=== PATIENT | female | born 1995 | race Hispanic/Latino ===

== ENCOUNTER 2017-12-01 20:01 | Inpatient (IN) | payer MEDICAID ==
[2017-12-01] MEDS ORDERED: Sodium Chloride 0.9% 1,000 ML IV STA ×2 (20:41→23:12)
[2017-12-01] MEDS ORDERED: Acetaminophen 160 mg/5 ml UD PO STA (20:42)
[2017-12-01] MEDS ORDERED: Acetaminophen 325 MG/10.15 ML ONE (21:02)
[2017-12-01] MEDS ORDERED: cefTRIAXone (Rocephin) 1 gm Inj ONE (21:02)
--- NOTE | 2017-12-01 21:03 | ED PDOC ---
HPI: General Adult Time Seen by Provider: 12/01/17 20:12 Chief Complaint (Nursing): Fever Chief Complaint (Provider): Flu-like symptoms and Right sided flank pain History Per: Patient History/Exam Limitations: no limitations Onset/Duration Of Symptoms: Days (2 days) Current Symptoms Are (Timing): Still Present Additional Complaint(s): 22 yo female presents to the ED complaining of fever, chills, body aches, and right sided flank pain, onset of 2 days ago. Patient also reports of poor appetite, but denies any urinary problems, nausea, vomiting, or diarrhea. Of note, she has not taken an medication for the symptoms. Past Medical History Reviewed: Historical Data, Nursing Documentation, Vital Signs Vital Signs: Last Vital Signs Temp 101.2 F H 12/01/17 20:06 Pulse 124 H 12/01/17 20:06 Resp 18 12/01/17 20:06 BP 127/82 12/01/17 20:06 Pulse Ox 96 12/01/17 21:10 - Medical History PMH: No Chronic Diseases - Surgical History Surgical History: No Surg Hx - Family History Family History: States: Unknown Family Hx - Social History Current smoker - smoking cessation education provided: No Ex-Smoker (has not smoked in the last 12 months): No Alcohol: None Drugs: Denies - Home Medications Home Medications: Ambulatory Orders Medication Instructions Recorded Ondansetron [Zofran Odt] 4 mg PO BID PRN #24 odt 12/06/14 - Allergies Allergies/Adverse Reactions: Allergies Allergy/AdvReac Type Severity Reaction Status Date / Time No Known Allergies Allergy Verified 12/05/14 22:11 Review of Systems ROS Statement: Except As Marked, All Systems Reviewed And Found Negative Constitutional: Positive for: Fever, Chills, Weakness, Other (body aches) Genitourinary Female: Negative for: Dysuria, Frequency, Incontinence Musculoskeletal: Positive for: Back Pain (right sided flank pain) Neurological: Positive for: Headache Physical Exam - Reviewed Nursing Documentation Reviewed: Yes Vital Signs Reviewed: Yes - Physical Exam Appears: Positive for: Non-toxic, No Acute Distress, Uncomfortable Head Exam: Positive for: ATRAUMATIC, NORMAL INSPECTION, NORMOCEPHALIC Skin: Positive for: Normal Color, Warm Eye Exam: Positive for: Normal appearance, EOMI, PERRL ENT: Positive for: Normal ENT Inspection Neck: Positive for: Normal, Painless ROM, Supple Cardiovascular/Chest: Positive for: Regular Rate, Rhythm, Tachycardia. Negative for: Murmur Respiratory: Positive for: Normal Breath Sounds. Negative for: Respiratory Distress Gastrointestinal/Abdominal: Positive for: Normal Exam, Soft. Negative for: Tenderness Back: Positive for: R CVA Tenderness Extremity: Positive for: Normal ROM, Pedal Edema. Negative for: Deformity Neurologic/Psych: Positive for: Alert, Oriented - Laboratory Results Result Diagrams: 12/01/17 21:32 12/01/17 21:00 - ECG O2 Sat by Pulse Oximetry: 96 (RA) Pulse Ox Interpretation: Normal Medical Decision Making Medical Decision Making: Time: --20:45 Impression: --22 y/o female Flu-like symptoms and Right Sided Flank pain Plan: --labs --lactic acid, plasma --ED urine Dip --ED urine --Tylenol 960mg PO --Toradol 15mg IVP --IV fluids --Ceftriaxone --Blood Culture --Culture urine --Heplock Insetion --Influenza A B --urinalysis Reassess --21:00 Urine was indicative of a urinary infection. IV Rocephin ordered --22:50 labs reviewed and significant for leukocytosis. 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 Patient discussed with Dr. Mendez, medicine transportation logistics internship, and will be admitted. Scribe Attestation: Documented by Alcides Alejandre acting as a scribe for Jarrett Herndon MD. Provider Attestation: All medical record entries made by the Scribe were at my direction and personally dictated by me. I have reviewed the chart and agree that the record accurately reflects my personal performance of the history, physical exam, medical decision making, and the department course for this patient. I have also personally directed, reviewed, and agree with the discharge instructions and disposition. Disposition - Clinical Impression Clinical Impression: Flu, Flank pain - Patient ED Disposition Is Patient to be Admitted: Yes Discussed With : He Mendez Doctor Will See Patient In The: Hospital - Disposition Disposition Time: 22:50 Condition: FAIR
[2017-12-01] MEDS ORDERED: cefTRIAXone 2 GM in Sodium Chloride 0.9% 100 ML IVPB STA (21:09)
[2017-12-01 21:23] LABS: ALB/GLOB RATIO 1.2 (1.0-2.1); ALBUMIN 4.9 g/dL (3.5-5.0); ALT/SGPT 24 U/L (9-52); AST/SGOT 25 U/L (14-36); BLOOD UREA NITROGEN 11 mg/dl (7-17); CALCIUM 9.6 mg/dL (8.4-10.2); GFR AFRICAN-AMERICAN > 60; GFR NON-AFRICAN AMERICAN > 60
[2017-12-01 21:30] LABS: SQUAMOUS EPITHIAL 2 /hpf (0-5); URINE BACTERIA OCC (<OCC); URINE BILIRUBIN NEGATIVE (NEGATIVE); URINE BLOOD SMALL (NEGATIVE); URINE CLARITY CLOUDY (Clear); URINE COLOR YELLOW (YELLOW); URINE GLUCOSE (UA) NEG (Normal); URINE LEUKOCYTE ESTERASE LARGE Leu/uL (Negative); URINE NITRATE POSITIVE (NEGATIVE); URINE PROTEIN 30 mg/dL (NEGATIVE)
[2017-12-01] MEDS ORDERED: cefTRIAXone 2 GM in Sodium Chloride 0.9% 100 ML IVPB ONE (21:30)
[2017-12-01 21:38] LABS: BASO % 0.4 % (0.0-2.0); HEMOGLOBIN 11.9 g/dL (12.0-16.0); LYMPH # 1.2 K/uL (1.0-4.3); LYMPH % 8.6 % (20.0-40.0); MEAN CELL VOLUME 87.9 fl (81.0-99.0); MEAN CORPUSCULAR HEMOGLOBIN 28.3 pg (27.0-31.0); MEAN CORPUSCULAR HGB CONC 32.2 g/dL (33.0-37.0); MEAN PLATELET VOLUME 9.2 fl (7.2-11.7); MONO # 1.5 K/uL (0.0-0.8); MONO % 10.3 % (0.0-10.0); NEUT # 11.4 K/uL (1.8-7.0); NEUT % 80.7 % (50.0-75.0); PLATELET COUNT 136 K/uL (130-400); RBC 4.18 Mil/uL (3.80-5.20); RED CELL DISTRIBUTION WIDTH 13.7 % (11.5-14.5); WHITE BLOOD COUNT 14.2 K/uL (4.8-10.8)
[2017-12-02 03:14] LABS: LYMPHOCYTE 10 % (20-50); MONOCYTE 5 % (0-10); NEUTROPHIL 85 % (42-75); TOTAL CELLS COUNTED 100
[2017-12-02 03:16] LABS: PLATELET ESTIMATE NORMAL (NORMAL)
[2017-12-02] MEDS: Acetaminophen 650mg/20.3ml solution UD PO PRN ×3 (04:27→20:38)
[2017-12-02 06:57] LABS: HEMOGLOBIN 11.5 g/dL (12.0-16.0); MEAN CELL VOLUME 88.4 fl (81.0-99.0); MEAN CORPUSCULAR HEMOGLOBIN 28.4 pg (27.0-31.0); MEAN CORPUSCULAR HGB CONC 32.1 g/dL (33.0-37.0); RBC 4.05 Mil/uL (3.80-5.20); RED CELL DISTRIBUTION WIDTH 13.8 % (11.5-14.5)
[2017-12-02] MEDS: levoFLOXacin 500 mg in D5W 500 MG/100 ML BAG IVPB SCH (08:16)
[2017-12-02] MEDS ORDERED: cefTRIAXone 2 GM in Sodium Chloride 0.9% 100 ML IVPB SCH (09:00)
--- NOTE | 2017-12-02 14:52 | US ---
HISTORY: Pelvic pain COMPARISON: comparison made with pelvic ultrasound dated 12/06/2014. TECHNIQUE: Transabdominal sonographic evaluation of the pelvis performed FINDINGS: UTERUS: The uterus is anteverted measuring approximately 7.6 x 3.3 x 5.3 cm. Normal in size. The uterus exhibits heterogeneous appearance though no discrete fibroid seen. . . There is a somewhat linear echogenic focus within the endometrial canal that probably represents in situ IUD ENDOMETRIUM: Measures 3.8 mm in diameter. Unremarkable. CERVIX: No cervical abnormality identified. RIGHT OVARY: Not visualized LEFT OVARY: Not visualized FREE FLUID: No significant free fluid noted. OTHER FINDINGS: None. IMPRESSION: Apparent in situ IUD as detailed above. Plain film radiograph of the abdomen could be performed to confirm. Right and left ovaries not visualized on this exam.
--- NOTE | 2017-12-02 15:54 | RAD ---
HISTORY: COMPARISON: No prior. TECHNIQUE: Chest PA and lateral FINDINGS: LINES AND TUBES: None. LUNG AND PLEURA: The lungs are well inflated. The right lung is clear. There is ill-defined opacity in the left retrocardiac region. HEART AND MEDIASTINUM: The heart is not enlarged. The hilar and mediastinal contours are within normal limits. SKELETAL STRUCTURES: The bony structures are within normal limits for the patient's age. VISUALIZED UPPER ABDOMEN: Normal. OTHER FINDINGS: None. IMPRESSION: Left retrocardiac airspace disease may represent subsegmental atelectasis however superimposed pneumonia cannot be excluded. Follow-up after medical management is recommended to ensure complete resolution.
--- NOTE | 2017-12-02 21:15 | HP ---
HISTORY OF PRESENT ILLNESS: Ms. Corey is a 22-year-old female who was admitted via the emergency room because of fever, chills, abdominal pain in right flank for 3 to 4 days prior to presentation. She denies nausea or vomiting or diarrhea. She was seen in the emergency room because of high temperature and the above symptoms, was advised workup and therapy. She was diagnosed to have acute pyelonephritis. PAST MEDICAL HISTORY: Unremarkable. SOCIAL HISTORY: She does not drink or smoke. FAMILY HISTORY: Unremarkable. PHYSICAL EXAMINATION: GENERAL: The patient is alert, oriented, appears to be in mild distress because of fever. VITAL SIGNS: Blood pressure 127/82, pulse of 124, respiratory rate 18, temperature 101.2 degrees Fahrenheit, O2 sat 96% on room air. SKIN: Shows fair turgor. HEENT: Pupils equal, reactive to light and accommodation. Mouth shows fair hygiene. LUNGS: Clear. BREASTS: Normal. HEART: Regular. No murmurs or gallops. ABDOMEN: There is right flank and right upper quadrant tenderness. No suprapubic tenderness. GENITALIA: Deferred. RECTAL: Deferred. CENTRAL NERVOUS SYSTEM: Grossly intact. LABORATORY DATA: WBC 14.2, hemoglobin 11.9, platelet count 136,000. Sodium 137, potassium 4.0, BUN 11, creatinine 0.6, serum glucose 113. IMPRESSION: Abdominal pain with right flank tenderness. One has to rule out acute pyelonephritis, especially in view of the fact that the patient has positive nitrites in the urine, large amount of leukocyte esterase, RBCs with occasional bacteria. Moreno culture is already done. IV antibiotics started, analgesics for pain, Tylenol p.r.n. for fever. Ultrasound of abdomen and pelvis ordered. We will continue therapy as ordered. He Mendez MD
[2017-12-03] MEDS: Acetaminophen 650mg/20.3ml solution UD PO PRN ×2 (06:11→17:21)
[2017-12-03 06:56] LABS: BASO % 0.3 % (0.0-2.0); EOS # 0.1 K/uL (0.0-0.7); EOS % 0.6 % (0.0-4.0); HEMOGLOBIN 11.8 g/dL (12.0-16.0); LYMPH % 10.1 % (20.0-40.0); MEAN CELL VOLUME 86.6 fl (81.0-99.0); MEAN CORPUSCULAR HEMOGLOBIN 29.2 pg (27.0-31.0); MEAN CORPUSCULAR HGB CONC 33.7 g/dL (33.0-37.0); MEAN PLATELET VOLUME 9.8 fl (7.2-11.7); MONO # 1.1 K/uL (0.0-0.8); MONO % 10.6 % (0.0-10.0); NEUT # 7.8 K/uL (1.8-7.0); NEUT % 78.4 % (50.0-75.0); RBC 4.05 Mil/uL (3.80-5.20); RED CELL DISTRIBUTION WIDTH 13.7 % (11.5-14.5)
[2017-12-03 07:14] LABS: BLOOD UREA NITROGEN 6 mg/dl (7-17); CALCIUM 9.1 mg/dL (8.4-10.2); GFR AFRICAN-AMERICAN > 60; GFR NON-AFRICAN AMERICAN > 60
--- NOTE | 2017-12-03 09:03 | CP.PCM.PN ---
Subjective - Date & Time of Evaluation Date of Evaluation: 12/03/17 Time of Evaluation: 09:04 - Subjective Subjective: FEELS BETTER BUT STILL HAS LOW GRADE FEVER ABDOMINAL PAIN LESS NO COUGH/CHEST PAINS/SOB Objective - Vital Signs/Intake and Output Vital Signs (last 24 hours): Temp Pulse Resp BP Pulse Ox 100 F H 89 20 91/55 L 98 12/03/17 08:11 12/03/17 08:11 12/03/17 08:11 12/03/17 08:11 12/03/17 08:11 - Medications Medications: Current Medications Acetaminophen (Tylenol 650mg/20.3ml Solution Ud) 650 mg PO Q4 PRN PRN Reason: Pain, Mild (1-3) Last Admin: 12/03/17 06:11 Dose: 650 mg Acetaminophen (Tylenol 650mg/20.3ml Solution Ud) 650 mg PO Q4 PRN PRN Reason: temperature >100 Last Admin: 12/02/17 20:38 Dose: 650 mg Levofloxacin/Dextrose (Levaquin 500mg) 500 mg in 100 mls @ 100 mls/hr IVPB DAILY ALICE PRN Reason: Protocol Last Admin: 12/02/17 08:16 Dose: 100 mls/hr Ceftriaxone Sodium 1 gm/ (Sodium Chloride) 100 mls @ 100 mls/hr IVPB DAILY@ 1200 ALICE PRN Reason: Protocol Last Admin: 12/02/17 12:26 Dose: 100 mls/hr Ondansetron HCl (Zofran Inj) 4 mg IVP Q6 PRN PRN Reason: Nausea/Vomiting Last Admin: 12/02/17 18:49 Dose: 4 mg - Labs Labs: 12/03/17 05:55 12/03/17 05:55 - Constitutional Appears: No Acute Distress - Head Exam Head Exam: ATRAUMATIC, NORMAL INSPECTION, NORMOCEPHALIC - Eye Exam Eye Exam: EOMI, Normal appearance, PERRL Pupil Exam: NORMAL ACCOMODATION, PERRL - ENT Exam ENT Exam: Mucous Membranes Moist, Normal Exam - Neck Exam Neck Exam: Full ROM, Normal Inspection. absent: Lymphadenopathy - Respiratory Exam Respiratory Exam: Clear to Ausculation Bilateral, NORMAL BREATHING PATTERN - Cardiovascular Exam Cardiovascular Exam: REGULAR RHYTHM, +S1, +S2. absent: Murmur - GI/Abdominal Exam GI & Abdominal Exam: Soft, Tenderness, Normal Bowel Sounds Additional comments: R FLANK TENDERNESS - Rectal Exam Rectal Exam: NORMAL INSPECTION - Extremities Exam Extremities Exam: Full ROM, Normal Capillary Refill, Normal Inspection. absent : Joint Swelling, Pedal Edema - Back Exam Back Exam: NORMAL INSPECTION - Neurological Exam Neurological Exam: Alert, Awake, CN II-XII Intact, Normal Gait, Oriented x3 - Psychiatric Exam Psychiatric exam: Normal Affect, Normal Mood - Skin Skin Exam: Dry, Intact, Normal Color, Warm Assessment and Plan - Assessment and Plan (Free Text) Assessment: ACUTE PYELONEPHRITIS PNEUMONIA L BASE Plan: CONTINUE ANTIBIOTIC RX URINE CULTURES PENDING ID EVAL
[2017-12-03] MEDS: levoFLOXacin 500 mg in D5W 500 MG/100 ML BAG IVPB SCH (09:30)
--- NOTE | 2017-12-03 12:20 | CP.PCM.CON ---
History of Present Illness - History of Present Illness History of Present Illness: 22 yo female presents to the ED complaining of fever, chills, body aches, and right sided flank pain, onset of 2 days ago. Patient also reports of poor appetite, but denies any urinary problems, nausea, vomiting, or diarrhea. Of note, she has not taken an medication for the symptoms. still has flank pain and tend right side would ask for US abd/pelvis Review of Systems - Constitutional Constitutional: As Per HPI - EENT Eyes: As Per HPI. absent: Blind Spots, Blurred Vision, Change in Vision, Decreased Night Vision, Diplopia, Discharge, Dry Eye, Exophthalmos, Floaters, Irritation, Itchy Eyes, Loss of Peripheral Vision, Pain, Photophobia, Requires Corrective Lenses, Sees Flashes, Spots in Vision, Tunnel Vision, Other Visual Disturbances, Loss of Vision, Other Ears: absent: As Per HPI, Decreased Hearing, Ear Discharge, Ear Pain, Tinnitus, Abnormal Hearing, Disequilibrium, Dizziness, Other Nose/Mouth/Throat: absent: As Per HPI, Epistaxis, Nasal Congestion, Nasal Discharge, Nasal Obstruction, Nasal Trauma, Nose Pain, Post Nasal Drip, Sinus Pain, Sinus Pressure, Bleeding Gums, Change in Voice, Dental Pain, Dry Mouth, Dysphagia, Halitosis, Hoarsness, Lip Swelling, Mouth Lesions, Mouth Pain, Odynophagia, Sore Throat, Throat Swelling, Tongue Swelling, Facial Pain, Neck Pain, Neck Mass, Other - Breasts Breasts: absent: As Per HPI, Change in Shape, Mass, Pain, Nipple Discharge, Nipple Inversion, Skin Changes, Swelling, Other - Cardiovascular Cardiovascular: absent: As Per HPI, Acrocyanosis, Chest Pain, Chest Pain at Rest , Chest Pain with Activity, Claudication, Diaphoresis, Dyspnea, Dyspnea on Exertion, Edema, Irregular Heart Rhythm, Pain Radiating to Arm/Neck/Jaw, Leg Edema, Leg Ulcers, Lightheadedness, Orthopnea, Palpitations, Paroxysmal Nocturnal Dyspnea, Pedal Edema, Radiating Pain, Rapid Heart Rate, Slow Heart Rate, Syncope, Other - Respiratory Respiratory: absent: As Per HPI, Cough, Dyspnea, Hemoptysis, Dyspnea on Exertion , Wheezing, Snoring, Stridor, Pain on Inspiration, Chest Congestion, Excessive Mucous Production, Change in Mucous Color, Pain with Coughing, Other - Gastrointestinal Gastrointestinal: As Per HPI - Genitourinary Genitourinary: As Per HPI - Reproductive: Female Reproductive:Female: absent: As Per HPI, Amenorrhea, Amenorrhea/ Control, Currently Menstual, Cycle <21 Days, Cycle >35 Days, Cycle Variable, Menses 1-7 Days, Menses >/= 8 Days, Menses Variable, Cycle > 4 Weeks Between, No Menses for 6 Months, Heavy Menses, Light Menses, Normal Menses, Spotting Between Cycles , S/P Hysterectomy, Menopausal, Post Menopausal, Premenarche, Abnormal Vaginal Bleeding, Dysmenorrhea, Dyspareunia, Genital Lesions, Genital Pruritis, Pelvic Pain, Prolapse Symptoms, Sexual Dysfunction, Vaginal Discharge, Vaginal Dryness , Vaginal Odor, Vaginal Pruritis, Other - Menstruation Menstruation: absent: As Per HPI, Amenorrhea, Amenorrhea/ Control, Currently Menstual, Cycle <21 Days, Cycle >35 Days, Cycle Variable, Menses 1-7 Days, Menses >/= 8 Days, Menses Variable, Cycle > 4 Weeks Between, No Menses for 6 Months, Heavy Menses, Light Menses, Normal Menses, Spotting Between Cycles , S/P Hysterectomy, Menopausal, Post Menopausal, Premenarche, Abnormal Vaginal Bleeding, Dysmenorrhea, Other - Musculoskeletal Musculoskeletal: absent: As Per HPI, Abnormal Gait, Arthralgias, Atrophy, Back Pain, Deformity, Joint Swelling, Limited Range of Motion, Loss of Height, Muscle Cramps, Muscle Weakness, Myalgias, Neck Pain, Numbness, Radiating Pain into Limb, Stiffness, Tingling, Other - Integumentary Integumentary: absent: As Per HPI, Acne, Alopecia, Bleeding Lesions, Change in Hair, Change in Nails, Change in Pigmentation, Changing Lesions, Dry Skin, Erythema, Furuncle, Hirsutism, Lesions, New Lesions, Non-Healing Lesions, Photosensitivity, Pruritus, Rash, Skin Pain, Skin Ulcer, Sores, Striae, Swelling , Unusual Bruising, Wounds, Jaundice, Other - Neurological Neurological: absent: As Per HPI, Abnormal Gait, Abnormal Hearing, Abnormal Movements, Abnormal Speech, Behavioral Changes, Burning Sensations, Confusion, Convulsions, Disequilibrium, Dizziness, Numbness, Focal Weakness, Frequent Falls , Headaches, Lack of Coordination, Loss of Vision, Memory Loss, Paresthesias, Radicular Pain, Restless Legs, Sensory Deficit, Syncope, Tingling, Tremor, Vertigo, Weakness, Other Visual Disturbances, Other - Psychiatric Psychiatric: absent: As Per HPI, Abnormal Sleep Pattern, Anhedonia, Anxiety, Auditory Hallucinations, Behavioral Changes, Change in Appetite, Change in Libido, Confusion, Depression, Difficulty Concentrating, Hallucinations, Homicidal Ideation, Hopelessness, Irritability, Memory Loss, Mood Swings, Panic Attacks, Paranoia, Suicidal Ideation, Visual Hallucinations, Tactile Hallucinations, Other - Endocrine Endocrine: absent: As Per HPI, Change in Body Appearance, Change in Libido, Cold Intolorance, Deepening of Voice, Excessive Sweating, Fatigue, Flushing, Heat Intolorance, Increase in Ring/Shoe/Hat Size, Palpitations, Polydipsia, Polyphagia, Polyuria, Other - Hematologic/Lymphatic Hematologic: absent: As Per HPI, Easy Bleeding, Easy Bruising, Lymphadenopathy, Other Past Patient History - Past Medical History & Family History Past Medical History?: No - Past Social History Smoking Status: Never Smoked - CARDIAC Hx Cardiac Disorders: No - PULMONARY Hx Respiratory Disorders: No - NEUROLOGICAL Hx Neurological Disorder: No - HEENT Hx HEENT Problems: No - RENAL Hx Chronic Kidney Disease: No - ENDOCRINE/METABOLIC Hx Endocrine Disorders: No - HEMATOLOGICAL/ONCOLOGICAL Hx Blood Disorders: No Hx AIDS: No Hx Human Immunodeficiency Virus (HIV): No - INTEGUMENTARY Hx Dermatological Problems: No - MUSCULOSKELETAL/RHEUMATOLOGICAL Hx Musculoskeletal Disorders: No Hx Falls: No - GASTROINTESTINAL Hx Gastrointestinal Disorders: No - GENITOURINARY/GYNECOLOGICAL Hx Genitourinary Disorders: No - PSYCHIATRIC Hx Psychophysiologic Disorder: No Hx Substance Use: No - SURGICAL HISTORY Hx Surgeries: Yes Hx Section: Yes - ANESTHESIA Hx Anesthesia: Yes Hx Anesthesia Reactions: No Hx Malignant Hyperthermia: No Has any member of the family had a problem w/ anesthesia?: No Meds Allergies/Adverse Reactions: Allergies Allergy/AdvReac Type Severity Reaction Status Date / Time No Known Allergies Allergy Verified 12/05/14 22:11 - Medications Medications: Current Medications Acetaminophen (Tylenol 650mg/20.3ml Solution Ud) 650 mg PO Q4 PRN PRN Reason: Pain, Mild (1-3) Last Admin: 12/03/17 06:11 Dose: 650 mg Acetaminophen (Tylenol 650mg/20.3ml Solution Ud) 650 mg PO Q4 PRN PRN Reason: temperature >100 Last Admin: 12/02/17 20:38 Dose: 650 mg Levofloxacin/Dextrose (Levaquin 500mg) 500 mg in 100 mls @ 100 mls/hr IVPB DAILY ALICE PRN Reason: Protocol Last Admin: 12/03/17 09:30 Dose: 100 mls/hr Ceftriaxone Sodium 1 gm/ (Sodium Chloride) 100 mls @ 100 mls/hr IVPB DAILY@ 1200 ALICE PRN Reason: Protocol Last Admin: 12/03/17 12:10 Dose: 100 mls/hr Ondansetron HCl (Zofran Inj) 4 mg IVP Q6 PRN PRN Reason: Nausea/Vomiting Last Admin: 12/02/17 18:49 Dose: 4 mg Physical Exam - Constitutional Appears: Non-toxic, No Acute Distress - Head Exam Head Exam: NORMOCEPHALIC - Eye Exam Eye Exam: PERRL. absent: Scleral icterus - ENT Exam ENT Exam: Mucous Membranes Dry - Neck Exam Neck exam: Negative for: Lymphadenopathy - Respiratory Exam Respiratory Exam: Decreased Breath Sounds - Cardiovascular Exam Cardiovascular Exam: REGULAR RHYTHM - GI/Abdominal Exam GI & Abdominal Exam: Diminished Bowel Sounds, Soft, Tenderness. absent: Guarding, Rebound, Rigid - Rectal Exam Rectal Exam: Deferred - Exam Exam: NORMAL INSPECTION - Extremities Exam Extremities exam: Positive for: pedal pulses present. Negative for: calf tenderness, pedal edema, tenderness - Back Exam Back exam: absent: CVA tenderness (L), CVA tenderness (R) - Neurological Exam Neurological exam: Alert, CN II-XII Intact, Oriented x3, Reflexes Normal - Psychiatric Exam Psychiatric exam: Normal Mood - Skin Skin Exam: Dry Results - Vital Signs Recent Vital Signs: Last Vital Signs Temp 100 F H 12/03/17 08:11 Pulse 89 12/03/17 08:11 Resp 20 12/03/17 08:11 BP 91/55 L 12/03/17 08:11 Pulse Ox 98 12/03/17 08:11 - Labs Result Diagrams: 12/03/17 05:55 12/03/17 05:55 Labs: Laboratory Results - last 24 hr 12/03/17 12/03/17 05:55 05:55 WBC 10.0 RBC 4.05 Hgb 11.8 L Hct 35.1 MCV 86.6 MCH 29.2 MCHC 33.7 RDW 13.7 Plt Count 134 MPV 9.8 Neut % (Auto) 78.4 H Lymph % (Auto) 10.1 L Moody % (Auto) 10.6 H Eos % (Auto) 0.6 Baso % (Auto) 0.3 Neut # 7.8 H Lymph # 1.0 Moody # 1.1 H Eos # 0.1 Baso # 0.0 Sodium 138 Potassium 4.1 Chloride 101 Carbon Dioxide 25 Anion Gap 16 BUN 6 L Creatinine 0.5 L Est GFR ( Amer) > 60 Est GFR (Non-Af Amer) > 60 Random Glucose 101 Calcium 9.1 Assessment & Plan (1) Flank pain Status: Acute - Assessment and Plan (Free Text) Assessment: rx as pyelo chsck GC / Chlamydia check US abd/ pelvis cont IV then PO rx for min 10-14 days await cultures
--- NOTE | 2017-12-03 15:58 | US ---
HISTORY: abdominal pain COMPARISON: None. TECHNIQUE: Sonographic evaluation of the abdomen. FINDINGS: LIVER: Measures 15.1 cm. Normal echogenicity of the liver parenchyma. No mass. No intrahepatic bile duct dilatation. GALLBLADDER: Unremarkable. No gallstones. COMMON BILE DUCT: Measures 3.4 mm. No stones. No dilatation. PANCREAS: Unremarkable as visualized. No mass. No ductal dilatation. RIGHT KIDNEY: Measures 10.8 x 5.8 x 4 pointcm. Normal echogenicity. No calculus, mass, or hydronephrosis. LEFT KIDNEY: Measures 11.3 x 6 x 4.9cm. Normal echogenicity. No calculus, mass, or hydronephrosis. SPLEEN: Normal in size and contour. No mass. AORTA: No aneurysmal dilatation. IVC: Unremarkable. OTHER FINDINGS: None. IMPRESSION: No ultrasound evidence of acute pathology in the abdomen.
[2017-12-04 06:45] LABS: HEMOGLOBIN 12.2 g/dL (12.0-16.0); MEAN CELL VOLUME 86.8 fl (81.0-99.0); MEAN CORPUSCULAR HEMOGLOBIN 29.5 pg (27.0-31.0); MEAN CORPUSCULAR HGB CONC 33.9 g/dL (33.0-37.0); RBC 4.15 Mil/uL (3.80-5.20); RED CELL DISTRIBUTION WIDTH 14.1 % (11.5-14.5); WHITE BLOOD COUNT 7.6 K/uL (4.8-10.8)
[2017-12-04 07:26] LABS: BLOOD UREA NITROGEN 9 mg/dl (7-17); CALCIUM 9.3 mg/dL (8.4-10.2); GFR AFRICAN-AMERICAN > 60; GFR NON-AFRICAN AMERICAN > 60
[2017-12-04] MEDS: levoFLOXacin 500 mg in D5W 500 MG/100 ML BAG IVPB SCH (08:39)
--- NOTE | 2017-12-04 09:02 | PQF GENQUE ---
Dr. Mendez, Please specify the underlying cause of SIRS (suspected, probable, questionable, or clinical is acceptable if documented at the time of discharge): if in agreement and if known after the work up is completed Infectious cause (please specify infectious process) Non-infectious cause (please specify non-infectious process) OR: Disagree OR: Other explanation of clinical finding ER MD admit order to [facility] on 12/01: Admitting Dx.: Pyelopnephritis, SIRS WBC: 14.2->13.0->10.0 Temp.: 101.2->98.6 and on 12/03: Temp.: 102.4->100.4 Pulse: 124->87->86 ER: Clinical Impression: Flu, Flank pain ID consult: ID: (1) Flank pain Status: Acute ;Assessment : rx as pyelo ,chsck GC / Chlamydia ,check US abd/ pelvis ,cont IV then PO rx for min 10-14 days , await cultures Attending progress note: Assessment: Acute Pyelonepritis, Pneumonia This form is a permanent part of the medical record Clarification of your documentation is requested to better reflect the severity of illness and intensity of treatment of your patient. Indicators present [] Specify: [] [] Specify: [] [] Specify: [] [] Specify: [] Location in the medical record that reflects the above clinical findings: [] Treatment Provided: [] PHYSICIAN'S RESPONSE Based on your medical judgment of the clinical indicators outlined above please clarify the following: [X] Practitioner response --SIRS DUE TO ACUTE PYELONEPHRITIS [] If unable to determine, please check the box, sign and date. Present On Admission (POA) Indicator: [] Present at the time of admission [] Not present at the time of admission [] Clinically Undetermined In responding to this query, please exercise your independent professional judgment. The fact that a question is asked does not imply that any particular answer is desired or expected. Thank you for your clarification on this documentation. If you have any questions please call. * Thank you, Ceci Uribe RN ext. #[phone] MTDD
--- NOTE | 2017-12-04 10:12 | CP.PCM.PN ---
Subjective - Date & Time of Evaluation Date of Evaluation: 12/04/17 Time of Evaluation: 10:12 - Subjective Subjective: FEELING BETTER STILL HAS LOW GRADE TEMP Objective - Vital Signs/Intake and Output Vital Signs (last 24 hours): Temp Pulse Resp BP Pulse Ox 99.1 F 93 H 20 101/63 98 12/04/17 08:31 12/04/17 08:31 12/04/17 08:31 12/04/17 08:31 12/04/17 08:31 - Medications Medications: Current Medications Acetaminophen (Tylenol 650mg/20.3ml Solution Ud) 650 mg PO Q4 PRN PRN Reason: Pain, Mild (1-3) Last Admin: 12/03/17 17:21 Dose: 650 mg Acetaminophen (Tylenol 650mg/20.3ml Solution Ud) 650 mg PO Q4 PRN PRN Reason: temperature >100 Last Admin: 12/02/17 20:38 Dose: 650 mg Levofloxacin/Dextrose (Levaquin 500mg) 500 mg in 100 mls @ 100 mls/hr IVPB DAILY ALICE PRN Reason: Protocol Last Admin: 12/04/17 08:39 Dose: 100 mls/hr Ceftriaxone Sodium 1 gm/ (Sodium Chloride) 100 mls @ 100 mls/hr IVPB DAILY@ 1200 ALICE PRN Reason: Protocol Last Admin: 12/03/17 12:10 Dose: 100 mls/hr Ondansetron HCl (Zofran Inj) 4 mg IVP Q6 PRN PRN Reason: Nausea/Vomiting Last Admin: 12/02/17 18:49 Dose: 4 mg - Labs Labs: 12/04/17 05:50 12/04/17 05:50 - Constitutional Appears: No Acute Distress - Head Exam Head Exam: ATRAUMATIC, NORMAL INSPECTION, NORMOCEPHALIC - Eye Exam Eye Exam: EOMI, Normal appearance, PERRL Pupil Exam: NORMAL ACCOMODATION, PERRL - ENT Exam ENT Exam: Mucous Membranes Moist, Normal Exam - Neck Exam Neck Exam: Full ROM, Normal Inspection. absent: Lymphadenopathy - Respiratory Exam Respiratory Exam: Clear to Ausculation Bilateral, NORMAL BREATHING PATTERN - Cardiovascular Exam Cardiovascular Exam: REGULAR RHYTHM, +S1, +S2. absent: Murmur - GI/Abdominal Exam GI & Abdominal Exam: Soft, Normal Bowel Sounds. absent: Tenderness - Rectal Exam Rectal Exam: NORMAL INSPECTION - Extremities Exam Extremities Exam: Full ROM, Normal Capillary Refill, Normal Inspection. absent : Joint Swelling, Pedal Edema - Back Exam Back Exam: NORMAL INSPECTION - Neurological Exam Neurological Exam: Alert, Awake, CN II-XII Intact, Normal Gait, Oriented x3 - Psychiatric Exam Psychiatric exam: Normal Affect, Normal Mood - Skin Skin Exam: Dry, Intact, Normal Color, Warm Assessment and Plan - Assessment and Plan (Free Text) Assessment: ACUTE PYELONEPHRITIS--ECOLI PNEUMONIA Plan: CONTINUE PRESENT RX CXR TODAY
--- NOTE | 2017-12-04 11:16 | RAD ---
HISTORY: COMPARISON: 12/02/2017. TECHNIQUE: Chest PA and lateral FINDINGS: LINES AND TUBES: None. LUNG AND PLEURA: The lungs are well inflated and clear. HEART AND MEDIASTINUM: The heart is not enlarged. The hilar and mediastinal contours are within normal limits. SKELETAL STRUCTURES: The bony structures are within normal limits for the patient's age. VISUALIZED UPPER ABDOMEN: Normal. OTHER FINDINGS: None IMPRESSION: No active pulmonary disease.
--- NOTE | 2017-12-04 12:43 | CP.PCM.PN ---
Subjective - Date & Time of Evaluation Date of Evaluation: 12/04/17 Time of Evaluation: 09:00 - Subjective Subjective: no fever less pain belly soft nad Objective - Vital Signs/Intake and Output Vital Signs (last 24 hours): Temp Pulse Resp BP Pulse Ox 99.1 F 93 H 20 101/63 98 12/04/17 08:31 12/04/17 08:31 12/04/17 08:31 12/04/17 08:31 12/04/17 08:31 - Medications Medications: Current Medications Acetaminophen (Tylenol 650mg/20.3ml Solution Ud) 650 mg PO Q4 PRN PRN Reason: Pain, Mild (1-3) Last Admin: 12/03/17 17:21 Dose: 650 mg Acetaminophen (Tylenol 650mg/20.3ml Solution Ud) 650 mg PO Q4 PRN PRN Reason: temperature >100 Last Admin: 12/02/17 20:38 Dose: 650 mg Levofloxacin/Dextrose (Levaquin 500mg) 500 mg in 100 mls @ 100 mls/hr IVPB DAILY ALICE PRN Reason: Protocol Last Admin: 12/04/17 08:39 Dose: 100 mls/hr Ceftriaxone Sodium 1 gm/ (Sodium Chloride) 50 mls @ 50 mls/hr IVPB DAILY@1200 ALICE PRN Reason: Protocol Last Admin: 12/04/17 12:11 Dose: 50 mls/hr Ondansetron HCl (Zofran Inj) 4 mg IVP Q6 PRN PRN Reason: Nausea/Vomiting Last Admin: 12/02/17 18:49 Dose: 4 mg - Labs Labs: 12/04/17 05:50 12/04/17 05:50 - Constitutional Appears: Non-toxic, Chronically Ill - Head Exam Head Exam: NORMOCEPHALIC - Eye Exam Eye Exam: PERRL - ENT Exam ENT Exam: Mucous Membranes Dry - Neck Exam Neck Exam: absent: Lymphadenopathy - Respiratory Exam Respiratory Exam: Decreased Breath Sounds - Cardiovascular Exam Cardiovascular Exam: REGULAR RHYTHM - GI/Abdominal Exam GI & Abdominal Exam: Distended, Soft, Tenderness - Rectal Exam Rectal Exam: Deferred - Exam Exam: NORMAL INSPECTION Assessment and Plan (1) Flank pain Status: Acute - Assessment and Plan (Free Text) Assessment: cont rx pyelo for min 10 days
[2017-12-05 00:36] VITALS: RESP 20
[2017-12-05 08:14] VITALS: BP 98/62; PULSE 74; TEMP 98.5; O2SAT 98
[2017-12-05] MEDS: levoFLOXacin 500 mg in D5W 500 MG/100 ML BAG IVPB SCH (09:06)
--- NOTE | 2017-12-05 09:48 | CP.PCM.DIS ---
Provider - Provider Date of Admission: 12/02/17 12:16 Attending physician: He Mendez MD Time Spent in preparation of Discharge (in minutes): 30 Diagnosis - Discharge Diagnosis (1) Acute pyelonephritis Status: Acute (2) Urinary tract infection Status: Acute (3) Community acquired pneumonia Status: Acute (4) SIRS due to Gram-negative infection Status: Acute (5) Flank pain Status: Acute Hospital Course - Lab Results Lab Results: Micro Results 12/01/17 20:45 Blood-Venous Blood Culture - Preliminary NO GROWTH AFTER 3 DAYS 12/01/17 20:50 Blood-Venous Blood Culture - Preliminary NO GROWTH AFTER 3 DAYS 12/01/17 21:00 Urine,Clean Catch Urine Culture - Final Escherichia Coli Most Recent Lab Values WBC 7.6 K/uL (4.8-10.8) 12/04/17 05:50 RBC 4.15 Mil/uL (3.80-5.20) 12/04/17 05:50 Hgb 12.2 g/dL (12.0-16.0) 12/04/17 05:50 Hct 36.0 % (34.0-47.0) 12/04/17 05:50 MCV 86.8 fl (81.0-99.0) 12/04/17 05:50 MCH 29.5 pg (27.0-31.0) 12/04/17 05:50 MCHC 33.9 g/dL (33.0-37.0) 12/04/17 05:50 RDW 14.1 % (11.5-14.5) 12/04/17 05:50 Plt Count 165 K/uL (130-400) 12/04/17 05:50 MPV 9.8 fl (7.2-11.7) 12/03/17 05:55 Neut % (Auto) 78.4 % (50.0-75.0) H 12/03/17 05:55 Lymph % (Auto) 10.1 % (20.0-40.0) L 12/03/17 05:55 Phelps % (Auto) 10.6 % (0.0-10.0) H 12/03/17 05:55 Eos % (Auto) 0.6 % (0.0-4.0) 12/03/17 05:55 Baso % (Auto) 0.3 % (0.0-2.0) 12/03/17 05:55 Neut # 7.8 K/uL (1.8-7.0) H 12/03/17 05:55 Lymph # 1.0 K/uL (1.0-4.3) 12/03/17 05:55 Phelps # 1.1 K/uL (0.0-0.8) H 12/03/17 05:55 Eos # 0.1 K/uL (0.0-0.7) 12/03/17 05:55 Baso # 0.0 K/uL (0.0-0.2) 12/03/17 05:55 Neutrophils % (Manual) 85 % (42-75) H 12/01/17 21:32 Lymphocytes % (Manual) 10 % (20-50) L 12/01/17 21:32 Monocytes % (Manual) 5 % (0-10) 12/01/17 21:32 Platelet Estimate Normal (NORMAL) 12/01/17 21:32 Sodium 141 mmol/l (132-148) 12/04/17 05:50 Potassium 4.4 MMOL/L (3.6-5.0) 12/04/17 05:50 Chloride 102 mmol/L (98-107) 12/04/17 05:50 Carbon Dioxide 24 mmol/L (22-30) 12/04/17 05:50 Anion Gap 19 (10-20) 12/04/17 05:50 BUN 9 mg/dl (7-17) 12/04/17 05:50 Creatinine 0.6 mg/dl (0.7-1.2) L 12/04/17 05:50 Est GFR ( Amer) > 60 12/04/17 05:50 Est GFR (Non-Af Amer) > 60 12/04/17 05:50 POC Glucose (mg/dL) 107 mg/dL (65-110) 12/02/17 11:05 Random Glucose 86 mg/dL (65-105) 12/04/17 05:50 Lactic Acid 0.9 MMOL/L (0.7-2.1) 12/01/17 21:00 Calcium 9.3 mg/dL (8.4-10.2) 12/04/17 05:50 Total Bilirubin 1.1 mg/dl (0.2-1.3) 12/01/17 21:00 AST 25 U/L (14-36) 12/01/17 21:00 ALT 24 U/L (9-52) 12/01/17 21:00 Alkaline Phosphatase 74 U/L (38-126) 12/01/17 21:00 Total Protein 9.0 G/DL (6.3-8.2) H 12/01/17 21:00 Albumin 4.9 g/dL (3.5-5.0) 12/01/17 21:00 Globulin 4.1 gm/dL (2.2-3.9) H 12/01/17 21:00 Albumin/Globulin Ratio 1.2 (1.0-2.1) 12/01/17 21:00 Urine Color Yellow (YELLOW) 12/01/17 21:00 Urine Clarity Cloudy (Clear) 12/01/17 21:00 Urine pH 6.0 (5.0-8.0) 12/01/17 21:00 Ur Specific Orange 1.018 (1.003-1.030) 12/01/17 21:00 Urine Protein 30 mg/dL (NEGATIVE) 12/01/17 21:00 Urine Glucose (UA) Neg mg/dL (Normal) 12/01/17 21:00 Urine Ketones 20 mg/dL (NEGATIVE) 12/01/17 21:00 Urine Blood Small (NEGATIVE) 12/01/17 21:00 Urine Nitrate Positive (NEGATIVE) H 12/01/17 21:00 Urine Bilirubin Negative (NEGATIVE) 12/01/17 21:00 Urine Urobilinogen 4.0 mg/dL (0.2-1.0) H 12/01/17 21:00 Ur Leukocyte Esterase Large Jayne/uL (Negative) 12/01/17 21:00 Urine RBC (Auto) 9 /hpf (0-3) H 12/01/17 21:00 Urine Microscopic WBC 515 /hpf (0-5) H 12/01/17 21:00 Ur Squamous Epith Cells 2 /hpf (0-5) 12/01/17 21:00 Urine Bacteria Occ (<OCC) H 12/01/17 21:00 Influenza Typ A,B (EIA) Negative for flu a/b (NEGATIVE) 12/01/17 21:00 - Hospital Course Hospital Course: CLINICALLY IMPROVED ON IV ANTIBIOTIC RX Discharge Exam - Head Exam Head Exam: NORMOCEPHALIC - Eye Exam Eye Exam: EOMI, Normal appearance, PERRL Pupil Exam: NORMAL ACCOMODATION, PERRL - GI/Abdominal Exam GI & Abdominal Exam: Normal Bowel Sounds - Rectal Exam Rectal Exam: NORMAL INSPECTION - Neurological Exam Neurological exam: Alert, CN II-XII Intact, Normal Gait, Oriented x3, Reflexes Normal - Psychiatric Exam Psychiatric exam: Normal Affect, Normal Mood - Skin Skin Exam: Dry, Intact, Normal Color, Warm Discharge Plan - Follow Up Plan Condition: FAIR Disposition: HOME/ ROUTINE Patient education suggested?: Yes Additional Instructions: DISCHARGE TODAY ON PO CIPRO BID X 10 DAYS
== END 2017-12-05 10:58 | disposition home or self-care (01) | DRG 569 ==
LOC: H.ER 20:01 → H.ERHOLD 22:22 → H.MEDSURG1 12-02 00:40 → OBSVTOIN 12-02 12:16 → H.MEDSURG1 12-04 18:36
PROVIDERS: ADMIT Internal Medicine Pulmonary Disease; ATTEND Internal Medicine Pulmonary Disease
DX: N10 Acute pyelonephritis (principal); R65.10 Systemic inflammatory response syndrome (SIRS) of non-infectious origin without acute organ dysfunction; J18.9 Pneumonia, unspecified organism; B96.20 Unspecified Escherichia coli [E. coli] as the cause of diseases classified elsewhere